=== PATIENT | female | born 1965 | race Native Hawaiian/Other Pacific Islander ===

== ENCOUNTER 2022-12-26 12:50 | Outpatient (CLI) | payer OTHER | END 2022-12-26 21:50 | disposition home or self-care (01) | LOC: MAMMO 12:50 | PROVIDERS: ATTEND Internal Medicine | DX: Z12.31 Encounter for screening mammogram for malignant neoplasm of breast (principal); Z13.820 Encounter for screening for osteoporosis; N95.8 Other specified menopausal and perimenopausal disorders ==

== ENCOUNTER 2023-01-30 09:13 | Outpatient (CLI) | payer OTHER | END 2023-01-30 18:56 | disposition home or self-care (01) | LOC: MAMMO 09:13 | PROVIDERS: ATTEND Internal Medicine | DX: N64.59 Other signs and symptoms in breast (principal) ==